=== PATIENT | male | born 1940 | race Caucasian/White ===

== ENCOUNTER 2017-08-03 12:01 | Inpatient (IN) ==
[2017-08-03] MEDS ORDERED: ALBUTEROL/IPRATROPIUM 3 ML NEB RESP TX PRN (12:32)
[2017-08-03] MEDS ORDERED: ALBUTEROL/IPRATROPIUM 3 ML NEB RESP TX SCH (15:00)
[2017-08-03] MEDS ORDERED: IPRATROPIUM 500 MCG/2.5 ML NEB RESP TX PRN (15:07)
[2017-08-03] MEDS ORDERED: AMINOPHYLLINE 250 MG in SODIUM CHLORIDE 0.9% 100 ML IV ONE (15:08)
[2017-08-03 15:18] LABS: Basophils % 0.2 % (0.0-0.8); Hematocrit 46.8 VOL% (42.0-52.0); Immature Granulocytes % 1.2 %; Immature Granulocytes Absolute 0.21 #; Lymphocytes # 0.8 10*3/uL (1.4-4.0); Lymphocytes % 4.7 % (21.2-54.2); Mean Corpuscular HGB Conc 34.2 GM/DL (32-36); Mean Corpuscular Hemoglobin 32 PG (27-34); Mean Corpuscular Volume 93.2 FL (87-102); Mean Platelet Volume 9.3 FL (9.6-12.0); Monocytes % 6.1 % (1.7-12.7); Neutrophils # 14.8 10*3/uL (1.4-7.4); Neutrophils % 87.8 % (38.7-73.9); Platelet Count 219 T/CUMM (130-400); Red Blood Count 5.02 MC/CUMM (3.8-5.5); Red Cell Distribution Width 13.2 % (9.3-17.3); White Blood Count 16.9 T/CUMM (4-12)
[2017-08-03 15:55] LABS: Albumin 3.1 G/DL (3.4-5.0); Bilirubin,Total 0.5 MG/DL (0.2-1.0); Calcium 8.4 MG/DL (8.5-10.1); Osmolality,Calculated 279.5 MOS/KG (273-304); Thyroid Stimulating Hormone 0.111 uIU/ml (0.358-3.74); Total Protein 6.7 G/DL (6.4-8.3)
[2017-08-03 16:06] LABS: Troponin I Only < 0.015 NG/ML (0.00-0.045)
[2017-08-03] MEDS: DEXTROSE 5% NACL 0.45% 1,000 ML IV SCH (16:09)
[2017-08-03] MEDS: MEROPENEM 1,000 MG in SODIUM CHLORIDE 0.9% 100 ML IV SCH ×2 (16:09→23:10)
[2017-08-03] MEDS: methylPREDNISolone SOD SUC 125 MG/2 ML VIAL IV SCH (16:09)
[2017-08-03 17:11] LABS: Lymphocytes 3 % (20-55); Segmented Neutrophils 95 % (50-85); Total Cells Counted 100
[2017-08-03 17:13] LABS: Platelet Estimate Normal; Polychromasia Few
[2017-08-03] MEDS ORDERED: METHOCARBAMOL 750 MG TABLET PO PRN (19:12)
[2017-08-03] MEDS ORDERED: traMADol 50 MG TABLET PO PRN (19:12)
[2017-08-03] MEDS: DORNASE ALFA 2.5 MG/2.5 ML VIAL RESP TX SCH (19:36)
[2017-08-03] MEDS: IPRATROPIUM 500 MCG/2.5 ML NEB RESP TX SCH (19:36)
[2017-08-03] MEDS: AMINOPHYLLINE 500 MG in SODIUM CHLORIDE 0.9% 480 ML IV SCH (21:33)
[2017-08-03] MEDS: CETIRIZINE 10 MG TABLET PO SCH (21:39)
[2017-08-04 00:10] LABS: Troponin I Only < 0.015 NG/ML (0.00-0.045)
[2017-08-04] MEDS: methylPREDNISolone SOD SUC 125 MG/2 ML VIAL IV SCH ×2 (03:56→15:35)
[2017-08-04 04:45] LABS: Apearance,Urine CLEAR (Clear); Bilirubin,Urine Negative (Negative); Blood, Urine Negative (Negative); Glucose,Urine (UA) >=500 mg/dL (Negative); Ketones,Urine Negative (Negative); Mucus,Urine Occasional /LPF (Occasional); Nitrite,Urine Negative (Negative); Protein,Urine Negative; RBC,Urine 1 /HPF (0-4); Squamous Epithelial Cell,Urine Occasional /HPF (0-10); Urine Color Straw (Yellow); Urine Specific Gravity 1.009 (1.001-1.035); Urine Urobilinogen < 2.0 EU/DL (0.2-1.0); WBC,Urine <1 /HPF (0-6)
[2017-08-04 06:36] LABS: Basophils % 0.3 % (0.0-0.8); Hematocrit 45.8 VOL% (42.0-52.0); Hemoglobin 15.4 GM/DL (14.0-18.0); Immature Granulocytes % 1.1 %; Immature Granulocytes Absolute 0.17 #; Lymphocytes # 0.8 10*3/uL (1.4-4.0); Mean Corpuscular HGB Conc 33.6 GM/DL (32-36); Mean Corpuscular Hemoglobin 31 PG (27-34); Mean Corpuscular Volume 93.3 FL (87-102); Mean Platelet Volume 9.4 FL (9.6-12.0); Monocytes # 0.9 10*3/uL (0.11-0.8); Monocytes % 5.9 % (1.7-12.7); Neutrophils # 13.3 10*3/uL (1.4-7.4); Neutrophils % 87.7 % (38.7-73.9); Platelet Count 223 T/CUMM (130-400); Red Blood Count 4.91 MC/CUMM (3.8-5.5); Red Cell Distribution Width 13.1 % (9.3-17.3); White Blood Count 15.1 T/CUMM (4-12)
[2017-08-04 07:04] LABS: Calcium 8.9 MG/DL (8.5-10.1); Osmolality,Calculated 274.8 MOS/KG (273-304); Potassium 3.8 MMOL/L (3.5-5.1)
[2017-08-04] MEDS: MEROPENEM 1,000 MG in SODIUM CHLORIDE 0.9% 100 ML IV SCH ×3 (07:30→22:56)
[2017-08-04] MEDS: IPRATROPIUM 500 MCG/2.5 ML NEB RESP TX SCH ×4 (07:42→19:33)
[2017-08-04] MEDS: DORNASE ALFA 2.5 MG/2.5 ML VIAL RESP TX SCH ×2 (07:47→19:33)
[2017-08-04] MEDS: DEXTROSE 5% NACL 0.45% 1,000 ML IV SCH (09:53)
[2017-08-04] MEDS: POTASSIUM CHLORIDE 20 MEQ TABLET PO SCH (09:55)
[2017-08-04] MEDS: MONTELUKAST 10 MG TABLET PO SCH (09:55)
[2017-08-04] MEDS: amLODIPine 10 MG TABLET PO SCH (09:55)
[2017-08-04] MEDS: CHLORTHALIDONE 25 MG TABLET PO SCH (15:35)
[2017-08-04] MEDS: AMINOPHYLLINE 500 MG in SODIUM CHLORIDE 0.9% 480 ML IV SCH (20:37)
[2017-08-04] MEDS: CETIRIZINE 10 MG TABLET PO SCH (20:38)
[2017-08-05] MEDS: DEXTROSE 5% NACL 0.45% 1,000 ML IV SCH ×4 (01:40→22:44)
[2017-08-05] MEDS: methylPREDNISolone SOD SUC 125 MG/2 ML VIAL IV SCH ×2 (03:19→15:43)
[2017-08-05] MEDS: MEROPENEM 1,000 MG in SODIUM CHLORIDE 0.9% 100 ML IV SCH ×3 (06:37→22:43)
[2017-08-05] MEDS: IPRATROPIUM 500 MCG/2.5 ML NEB RESP TX SCH ×4 (07:43→19:27)
[2017-08-05] MEDS: DORNASE ALFA 2.5 MG/2.5 ML VIAL RESP TX SCH ×2 (07:49→19:27)
[2017-08-05] MEDS: CHLORTHALIDONE 25 MG TABLET PO SCH (09:15)
[2017-08-05] MEDS: amLODIPine 10 MG TABLET PO SCH (09:15)
[2017-08-05] MEDS: MONTELUKAST 10 MG TABLET PO SCH (09:15)
[2017-08-05] MEDS: POTASSIUM CHLORIDE 20 MEQ TABLET PO SCH (09:15)
[2017-08-05] MEDS: AMINOPHYLLINE 500 MG in SODIUM CHLORIDE 0.9% 480 ML IV SCH ×3 (09:16→21:03)
[2017-08-05] MEDS: EPINEPHrine 1 MG/ML VIAL SUBCUT PRN (11:17)
[2017-08-05] MEDS: CETIRIZINE 10 MG TABLET PO SCH (21:14)
[2017-08-06] MEDS: methylPREDNISolone SOD SUC 125 MG/2 ML VIAL IV SCH ×2 (03:15→16:19)
[2017-08-06] MEDS: MEROPENEM 1,000 MG in SODIUM CHLORIDE 0.9% 100 ML IV SCH ×3 (06:31→22:56)
[2017-08-06] MEDS: amLODIPine 10 MG TABLET PO SCH (08:17)
[2017-08-06] MEDS: CHLORTHALIDONE 25 MG TABLET PO SCH (08:17)
[2017-08-06] MEDS: MONTELUKAST 10 MG TABLET PO SCH (08:17)
[2017-08-06] MEDS: POTASSIUM CHLORIDE 20 MEQ TABLET PO SCH (08:17)
[2017-08-06] MEDS: IPRATROPIUM 500 MCG/2.5 ML NEB RESP TX SCH ×4 (08:30→19:37)
[2017-08-06] MEDS: DORNASE ALFA 2.5 MG/2.5 ML VIAL RESP TX SCH ×2 (08:37→19:37)
[2017-08-06] MEDS: DEXTROSE 5% NACL 0.45% 1,000 ML IV SCH ×2 (11:03→20:05)
[2017-08-06] MEDS: CETIRIZINE 10 MG TABLET PO SCH (20:05)
[2017-08-06] MEDS: AMINOPHYLLINE 500 MG in SODIUM CHLORIDE 0.9% 480 ML IV SCH (20:08)
[2017-08-07] MEDS: DEXTROSE 5% NACL 0.45% 1,000 ML IV SCH ×2 (03:13→20:29)
[2017-08-07] MEDS: methylPREDNISolone SOD SUC 125 MG/2 ML VIAL IV SCH ×2 (03:13→15:37)
[2017-08-07] MEDS: MEROPENEM 1,000 MG in SODIUM CHLORIDE 0.9% 100 ML IV SCH ×3 (06:59→23:43)
[2017-08-07] MEDS: IPRATROPIUM 500 MCG/2.5 ML NEB RESP TX SCH ×4 (07:05→19:16)
[2017-08-07] MEDS: DORNASE ALFA 2.5 MG/2.5 ML VIAL RESP TX SCH ×2 (07:15→19:24)
[2017-08-07] MEDS: amLODIPine 10 MG TABLET PO SCH (09:38)
[2017-08-07] MEDS: POTASSIUM CHLORIDE 20 MEQ TABLET PO SCH (09:38)
[2017-08-07] MEDS: MONTELUKAST 10 MG TABLET PO SCH (09:38)
[2017-08-07] MEDS: CHLORTHALIDONE 25 MG TABLET PO SCH (09:38)
[2017-08-07] MEDS: FLUCONAZOLE INJ 200 MG in PREMIX 1 EACH IV SCH (11:46)
[2017-08-07] MEDS: EPINEPHrine 1 MG/ML VIAL SUBCUT PRN (15:46)
[2017-08-07] MEDS: CETIRIZINE 10 MG TABLET PO SCH (20:30)
[2017-08-07] MEDS: AMINOPHYLLINE 500 MG in SODIUM CHLORIDE 0.9% 480 ML IV SCH (20:30)
[2017-08-08] MEDS: methylPREDNISolone SOD SUC 125 MG/2 ML VIAL IV SCH ×2 (04:19→17:46)
[2017-08-08] MEDS: IPRATROPIUM 500 MCG/2.5 ML NEB RESP TX SCH ×4 (06:48→19:15)
[2017-08-08] MEDS: DORNASE ALFA 2.5 MG/2.5 ML VIAL RESP TX SCH ×2 (06:53→19:27)
[2017-08-08 07:56] LABS: Basophils % 0.2 % (0.0-0.8); Hematocrit 47.6 VOL% (42.0-52.0); Hemoglobin 16.8 GM/DL (14.0-18.0); Immature Granulocytes % 1.3 %; Immature Granulocytes Absolute 0.24 #; Lymphocytes # 0.4 10*3/uL (1.4-4.0); Lymphocytes % 2.3 % (21.2-54.2); Mean Corpuscular HGB Conc 35.3 GM/DL (32-36); Mean Corpuscular Hemoglobin 31 PG (27-34); Mean Corpuscular Volume 88.8 FL (87-102); Mean Platelet Volume 9.6 FL (9.6-12.0); Monocytes # 1.1 10*3/uL (0.11-0.8); Monocytes % 5.8 % (1.7-12.7); Neutrophils # 17.1 10*3/uL (1.4-7.4); Neutrophils % 90.4 % (38.7-73.9); Platelet Count 184 T/CUMM (130-400); Red Blood Count 5.36 MC/CUMM (3.8-5.5); Red Cell Distribution Width 12.6 % (9.3-17.3); White Blood Count 18.9 T/CUMM (4-12)
[2017-08-08] MEDS ORDERED: diphenhydrAMINE 50 MG/1 ML VIAL IM ONE (08:00)
[2017-08-08] MEDS: MEROPENEM 1,000 MG in SODIUM CHLORIDE 0.9% 100 ML IV SCH ×3 (08:00→23:18)
[2017-08-08] MEDS ORDERED: MEPERIDINE 50 MG/1 ML VIAL IV ONE (08:00)
[2017-08-08] MEDS ORDERED: BENZONATATE 100 MG CAPSULE PO ONE (08:00)
[2017-08-08 08:13] LABS: Hypochromasia 1+; Lymphocytes 1 % (20-55); Segmented Neutrophils 93 % (50-85); Total Cells Counted 100
[2017-08-08] MEDS ORDERED: LIDOCAINE 2% 20 ML VIAL RESP TX ONE (08:30)
[2017-08-08] MEDS ORDERED: LIDOCAINE 1% 20 ML VIAL MISC INJ ONE (08:30)
[2017-08-08] MEDS ORDERED: LIDOCAINE 2% VISCOUS 100 ML BOTTLE SWISH/SPIT ONE (08:30)
[2017-08-08 09:34] LABS: PT Patient Result 10.6 SECS; Partial Thromboplastin Time 25.4 SECS (0-40)
[2017-08-08] MEDS: FLUCONAZOLE INJ 200 MG in PREMIX 1 EACH IV SCH (10:50)
[2017-08-08] MEDS: CHLORTHALIDONE 25 MG TABLET PO SCH (13:39)
[2017-08-08] MEDS: POTASSIUM CHLORIDE 20 MEQ TABLET PO SCH (13:39)
[2017-08-08] MEDS: MONTELUKAST 10 MG TABLET PO SCH (13:39)
[2017-08-08] MEDS: amLODIPine 10 MG TABLET PO SCH (13:39)
[2017-08-08] MEDS: FLUCONAZOLE INJ 100 MG in PREMIX 1 EACH IV SCH (14:48)
[2017-08-08] MEDS: CIPROFLOXACIN INJ 400 MG in PREMIX 1 EACH IV SCH (14:58)
[2017-08-08] MEDS: DEXTROSE 5% NACL 0.45% 1,000 ML IV SCH (15:01)
[2017-08-08] MEDS: EPINEPHrine 1 MG/ML VIAL SUBCUT PRN (17:53)
[2017-08-08] MEDS: AMINOPHYLLINE 500 MG in SODIUM CHLORIDE 0.9% 480 ML IV SCH (20:43)
[2017-08-08] MEDS: CETIRIZINE 10 MG TABLET PO SCH (20:43)
[2017-08-09] MEDS: methylPREDNISolone SOD SUC 125 MG/2 ML VIAL IV SCH ×2 (03:24→15:37)
[2017-08-09] MEDS: CIPROFLOXACIN INJ 400 MG in PREMIX 1 EACH IV SCH ×2 (03:24→14:11)
[2017-08-09] MEDS: IPRATROPIUM 500 MCG/2.5 ML NEB RESP TX SCH ×4 (06:55→19:17)
[2017-08-09] MEDS: DORNASE ALFA 2.5 MG/2.5 ML VIAL RESP TX SCH ×2 (06:55→19:17)
[2017-08-09] MEDS: DEXTROSE 5% NACL 0.45% 1,000 ML IV SCH (08:04)
[2017-08-09] MEDS: MEROPENEM 1,000 MG in SODIUM CHLORIDE 0.9% 100 ML IV SCH ×2 (09:11→15:37)
[2017-08-09] MEDS: POTASSIUM CHLORIDE 20 MEQ TABLET PO SCH (09:12)
[2017-08-09] MEDS: MONTELUKAST 10 MG TABLET PO SCH (09:12)
[2017-08-09] MEDS: amLODIPine 10 MG TABLET PO SCH (09:12)
[2017-08-09] MEDS: CHLORTHALIDONE 25 MG TABLET PO SCH (09:12)
[2017-08-09] MEDS: THEOPHYLLINE ER (24 HR) 200 MG CAPSULE PO SCH ×2 (13:32→16:27)
[2017-08-09] MEDS: FLUCONAZOLE INJ 100 MG in PREMIX 1 EACH IV SCH (13:42)
[2017-08-09] MEDS: CETIRIZINE 10 MG TABLET PO SCH (20:42)
[2017-08-10] MEDS: MEROPENEM 1,000 MG in SODIUM CHLORIDE 0.9% 100 ML IV SCH ×4 (00:37→23:39)
[2017-08-10] MEDS: methylPREDNISolone SOD SUC 125 MG/2 ML VIAL IV SCH ×2 (03:25→17:21)
[2017-08-10] MEDS: CIPROFLOXACIN INJ 400 MG in PREMIX 1 EACH IV SCH ×2 (03:25→14:11)
[2017-08-10] MEDS: IPRATROPIUM 500 MCG/2.5 ML NEB RESP TX SCH ×4 (06:58→19:15)
[2017-08-10] MEDS: DORNASE ALFA 2.5 MG/2.5 ML VIAL RESP TX SCH ×2 (06:58→19:16)
[2017-08-10] MEDS: CHLORTHALIDONE 25 MG TABLET PO SCH (08:36)
[2017-08-10] MEDS: MONTELUKAST 10 MG TABLET PO SCH (08:37)
[2017-08-10] MEDS: THEOPHYLLINE ER (24 HR) 200 MG CAPSULE PO SCH ×2 (08:37→17:21)
[2017-08-10] MEDS: amLODIPine 10 MG TABLET PO SCH (08:37)
[2017-08-10] MEDS: POTASSIUM CHLORIDE 20 MEQ TABLET PO SCH (08:37)
[2017-08-10] MEDS ORDERED: CHLORTHALIDONE 25 MG TABLET PO SCH (11:00)
[2017-08-10] MEDS: FLUCONAZOLE INJ 100 MG in PREMIX 1 EACH IV SCH (12:51)
[2017-08-10] MEDS: CETIRIZINE 10 MG TABLET PO SCH (20:24)
[2017-08-11] MEDS: methylPREDNISolone SOD SUC 125 MG/2 ML VIAL IV SCH (02:49)
[2017-08-11] MEDS: CIPROFLOXACIN INJ 400 MG in PREMIX 1 EACH IV SCH (02:50)
[2017-08-11] MEDS: MEROPENEM 1,000 MG in SODIUM CHLORIDE 0.9% 100 ML IV SCH (06:43)
[2017-08-11] MEDS: IPRATROPIUM 500 MCG/2.5 ML NEB RESP TX SCH (07:05)
[2017-08-11] MEDS: DORNASE ALFA 2.5 MG/2.5 ML VIAL RESP TX SCH (07:10)
[2017-08-11 07:33] VITALS: BP 146/90
[2017-08-11] MEDS: MONTELUKAST 10 MG TABLET PO SCH (08:14)
[2017-08-11] MEDS: POTASSIUM CHLORIDE 20 MEQ TABLET PO SCH (08:14)
[2017-08-11] MEDS: THEOPHYLLINE ER (24 HR) 200 MG CAPSULE PO SCH (08:14)
[2017-08-11] MEDS ORDERED: METOPROLOL TARTRATE 25 MG TABLET PO SCH (10:30)
== END 2017-08-11 11:50 | disposition home or self-care (01) | DRG 190 ==
LOC: N.5E 13:40
PROVIDERS: ADMIT Internal Medicine Pulmonary Disease; ATTEND Internal Medicine Pulmonary Disease

== ENCOUNTER 2017-08-24 11:46 | Inpatient (IN) ==
[2017-08-24] MEDS ORDERED: ALBUTEROL/IPRATROPIUM 3 ML NEB RESP TX PRN (12:04)
[2017-08-24] MEDS ORDERED: ALBUTEROL/IPRATROPIUM 3 ML NEB RESP TX SCH (13:00)
[2017-08-24] MEDS: LEVOFLOXACIN INJ 500 MG in PREMIX 1 EACH IV SCH (13:10)
[2017-08-24 14:25] LABS: Basophils % 0.3 % (0.0-0.8); Eosinophils # 0.2 10*3/uL (0.0-0.87); Eosinophils % 2.3 % (0.00-10.9); Hematocrit 39.6 VOL% (42.0-52.0); Hemoglobin 13.2 GM/DL (14.0-18.0); Immature Granulocytes % 1.3 %; Lymphocytes # 1.2 10*3/uL (1.4-4.0); Lymphocytes % 15.1 % (21.2-54.2); Mean Corpuscular HGB Conc 33.3 GM/DL (32-36); Mean Corpuscular Hemoglobin 32 PG (27-34); Mean Corpuscular Volume 95.2 FL (87-102); Mean Platelet Volume 9.5 FL (9.6-12.0); Monocytes # 1.1 10*3/uL (0.11-0.8); Monocytes % 14.5 % (1.7-12.7); Neutrophils # 5.1 10*3/uL (1.4-7.4); Neutrophils % 66.5 % (38.7-73.9); Platelet Count 177 T/CUMM (130-400); Red Blood Count 4.16 MC/CUMM (3.8-5.5); Red Cell Distribution Width 13.5 % (9.3-17.3); White Blood Count 7.7 T/CUMM (4-12)
[2017-08-24 14:35] LABS: Apearance,Urine CLEAR (Clear); Bilirubin,Urine Negative (Negative); Blood, Urine Negative (Negative); Glucose,Urine (UA) Negative (Negative); Ketones,Urine Negative (Negative); Mucus,Urine Occasional /LPF (Occasional); Nitrite,Urine Negative (Negative); Protein,Urine Negative; RBC,Urine <1 /HPF (0-4); Urine Color Yellow (Yellow); Urine Specific Gravity 1.014 (1.001-1.035); WBC,Urine 1 /HPF (0-6)
[2017-08-24 14:38] LABS: Albumin 2.1 G/DL (3.4-5.0); Bilirubin,Total 0.5 MG/DL (0.2-1.0); Calcium 8.7 MG/DL (8.5-10.1); Osmolality,Calculated 271.8 MOS/KG (273-304); Thyroid Stimulating Hormone 0.571 uIU/ml (0.358-3.74); Total Protein 6.6 G/DL (6.4-8.3)
[2017-08-24] MEDS: ALBUTEROL/IPRATROPIUM 3 ML NEB RESP TX SCH ×3 (14:55→19:35)
[2017-08-24] MEDS: cefTAZidime 1,000 MG in SYRINGE 1 EACH IV SCH ×2 (15:44→20:58)
[2017-08-24] MEDS ORDERED: METHOCARBAMOL 750 MG TABLET PO PRN (17:53)
[2017-08-24] MEDS ORDERED: traMADol 50 MG TABLET PO PRN (17:53)
[2017-08-24] MEDS: methylPREDNISolone SOD SUC 40 MG/1 ML VIAL IV SCH (19:03)
[2017-08-24] MEDS: THEOPHYLLINE ER (24 HR) 200 MG CAPSULE PO SCH (19:03)
[2017-08-25] MEDS: methylPREDNISolone SOD SUC 40 MG/1 ML VIAL IV SCH ×2 (05:49→18:03)
[2017-08-25] MEDS: cefTAZidime 1,000 MG in SYRINGE 1 EACH IV SCH ×3 (05:50→21:18)
[2017-08-25] MEDS: ALBUTEROL/IPRATROPIUM 3 ML NEB RESP TX SCH ×5 (07:37→20:12)
[2017-08-25 07:43] LABS: Basophils % 0.2 % (0.0-0.8); Hemoglobin 13.8 GM/DL (14.0-18.0); Immature Granulocytes % 1.1 %; Immature Granulocytes Absolute 0.07 #; Lymphocytes # 0.6 10*3/uL (1.4-4.0); Lymphocytes % 9.8 % (21.2-54.2); Mean Corpuscular HGB Conc 34.5 GM/DL (32-36); Mean Corpuscular Hemoglobin 32 PG (27-34); Mean Corpuscular Volume 91.5 FL (87-102); Mean Platelet Volume 8.9 FL (9.6-12.0); Monocytes # 0.3 10*3/uL (0.11-0.8); Monocytes % 5.2 % (1.7-12.7); Neutrophils # 5.5 10*3/uL (1.4-7.4); Neutrophils % 83.7 % (38.7-73.9); Platelet Count 204 T/CUMM (130-400); Red Blood Count 4.37 MC/CUMM (3.8-5.5); Red Cell Distribution Width 13.2 % (9.3-17.3); White Blood Count 6.5 T/CUMM (4-12)
[2017-08-25 08:09] LABS: Potassium 4.2 MMOL/L (3.5-5.1)
[2017-08-25] MEDS: MONTELUKAST 10 MG TABLET PO SCH (08:28)
[2017-08-25] MEDS: POTASSIUM CHLORIDE 20 MEQ TABLET PO SCH (08:28)
[2017-08-25] MEDS: THEOPHYLLINE ER (24 HR) 200 MG CAPSULE PO SCH ×2 (08:28→18:03)
[2017-08-25] MEDS: CETIRIZINE 10 MG TABLET PO SCH (08:28)
[2017-08-25] MEDS: METOPROLOL TARTRATE 25 MG TABLET PO PRN ×2 (08:28→21:16)
[2017-08-25] MEDS ORDERED: ETHACRYNIC ACID 25 MG TABLET PO SCH ×2 (11:00→21:00)
[2017-08-25] MEDS: LEVOFLOXACIN INJ 500 MG in PREMIX 1 EACH IV SCH (14:09)
[2017-08-26] MEDS: methylPREDNISolone SOD SUC 40 MG/1 ML VIAL IV SCH ×2 (05:20→18:10)
[2017-08-26] MEDS: cefTAZidime 1,000 MG in SYRINGE 1 EACH IV SCH ×3 (05:20→20:17)
[2017-08-26 06:46] LABS: Basophils % 0.2 % (0.0-0.8); Hemoglobin 13.4 GM/DL (14.0-18.0); Immature Granulocytes % 0.5 %; Immature Granulocytes Absolute 0.05 #; Lymphocytes # 1.2 10*3/uL (1.4-4.0); Lymphocytes % 12.5 % (21.2-54.2); Mean Corpuscular HGB Conc 33.5 GM/DL (32-36); Mean Corpuscular Hemoglobin 31 PG (27-34); Mean Platelet Volume 9.4 FL (9.6-12.0); Monocytes # 0.7 10*3/uL (0.11-0.8); Monocytes % 7.4 % (1.7-12.7); Neutrophils # 7.6 10*3/uL (1.4-7.4); Neutrophils % 79.4 % (38.7-73.9); Platelet Count 250 T/CUMM (130-400); Red Cell Distribution Width 13.7 % (9.3-17.3); White Blood Count 9.6 T/CUMM (4-12)
[2017-08-26 07:17] LABS: Calcium 9.1 MG/DL (8.5-10.1); Osmolality,Calculated 277.5 MOS/KG (273-304); Potassium 3.9 MMOL/L (3.5-5.1)
[2017-08-26] MEDS: ALBUTEROL/IPRATROPIUM 3 ML NEB RESP TX SCH ×4 (07:45→19:20)
[2017-08-26] MEDS: CETIRIZINE 10 MG TABLET PO SCH (10:01)
[2017-08-26] MEDS: POTASSIUM CHLORIDE 20 MEQ TABLET PO SCH (10:01)
[2017-08-26] MEDS: MONTELUKAST 10 MG TABLET PO SCH (10:01)
[2017-08-26] MEDS: THEOPHYLLINE ER (24 HR) 200 MG CAPSULE PO SCH ×2 (10:01→17:54)
[2017-08-26] MEDS: LEVOFLOXACIN INJ 500 MG in PREMIX 1 EACH IV SCH (14:18)
[2017-08-27] MEDS: cefTAZidime 1,000 MG in SYRINGE 1 EACH IV SCH ×3 (05:43→21:04)
[2017-08-27] MEDS: methylPREDNISolone SOD SUC 40 MG/1 ML VIAL IV SCH ×2 (05:46→17:04)
[2017-08-27 06:42] LABS: Basophils % 0.1 % (0.0-0.8); Eosinophils # 0.1 10*3/uL (0.0-0.87); Eosinophils % 0.6 % (0.00-10.9); Hematocrit 38.9 VOL% (42.0-52.0); Hemoglobin 12.8 GM/DL (14.0-18.0); Immature Granulocytes % 0.9 %; Immature Granulocytes Absolute 0.07 #; Lymphocytes # 1.6 10*3/uL (1.4-4.0); Lymphocytes % 20.7 % (21.2-54.2); Mean Corpuscular HGB Conc 32.9 GM/DL (32-36); Mean Corpuscular Hemoglobin 31 PG (27-34); Mean Corpuscular Volume 95.6 FL (87-102); Mean Platelet Volume 8.8 FL (9.6-12.0); Monocytes # 0.9 10*3/uL (0.11-0.8); Monocytes % 11.6 % (1.7-12.7); Neutrophils # 5.2 10*3/uL (1.4-7.4); Neutrophils % 66.1 % (38.7-73.9); Platelet Count 228 T/CUMM (130-400); Red Blood Count 4.07 MC/CUMM (3.8-5.5); Red Cell Distribution Width 13.6 % (9.3-17.3); White Blood Count 7.8 T/CUMM (4-12)
[2017-08-27 07:07] LABS: Calcium 8.9 MG/DL (8.5-10.1); Osmolality,Calculated 282.1 MOS/KG (273-304)
[2017-08-27] MEDS: ALBUTEROL/IPRATROPIUM 3 ML NEB RESP TX SCH ×4 (07:49→20:41)
[2017-08-27] MEDS: CETIRIZINE 10 MG TABLET PO SCH (09:21)
[2017-08-27] MEDS: THEOPHYLLINE ER (24 HR) 200 MG CAPSULE PO SCH ×2 (09:21→17:04)
[2017-08-27] MEDS: METOPROLOL TARTRATE 25 MG TABLET PO PRN (09:21)
[2017-08-27] MEDS: MONTELUKAST 10 MG TABLET PO SCH (09:21)
[2017-08-27] MEDS: POTASSIUM CHLORIDE 20 MEQ TABLET PO SCH (09:21)
[2017-08-27] MEDS: LEVOFLOXACIN INJ 500 MG in PREMIX 1 EACH IV SCH (12:33)
[2017-08-28] MEDS: methylPREDNISolone SOD SUC 40 MG/1 ML VIAL IV SCH ×2 (05:17→18:38)
[2017-08-28] MEDS: cefTAZidime 1,000 MG in SYRINGE 1 EACH IV SCH ×3 (05:17→20:49)
[2017-08-28] MEDS: ALBUTEROL/IPRATROPIUM 3 ML NEB RESP TX SCH ×4 (07:10→19:15)
[2017-08-28] MEDS: CETIRIZINE 10 MG TABLET PO SCH (09:26)
[2017-08-28] MEDS: POTASSIUM CHLORIDE 20 MEQ TABLET PO SCH (09:26)
[2017-08-28] MEDS: MONTELUKAST 10 MG TABLET PO SCH (09:26)
[2017-08-28] MEDS: THEOPHYLLINE ER (24 HR) 200 MG CAPSULE PO SCH ×2 (09:26→18:38)
[2017-08-28] MEDS: LEVOFLOXACIN INJ 500 MG in PREMIX 1 EACH IV SCH (14:21)
[2017-08-28] MEDS: METOPROLOL TARTRATE 25 MG TABLET PO PRN (20:55)
[2017-08-29] MEDS ORDERED: NON-FORMULARY MEDICATION PO SCH (00:30)
[2017-08-29] MEDS: methylPREDNISolone SOD SUC 40 MG/1 ML VIAL IV SCH (05:20)
[2017-08-29] MEDS: cefTAZidime 1,000 MG in SYRINGE 1 EACH IV SCH (05:21)
[2017-08-29] MEDS: ALBUTEROL/IPRATROPIUM 3 ML NEB RESP TX SCH ×2 (07:12→11:21)
[2017-08-29 07:34] VITALS: BP 148/88
[2017-08-29] MEDS ORDERED: ETHACRYNIC ACID PO SCH (09:00)
[2017-08-29] MEDS: POTASSIUM CHLORIDE 20 MEQ TABLET PO SCH (09:05)
[2017-08-29] MEDS: MONTELUKAST 10 MG TABLET PO SCH (09:05)
[2017-08-29] MEDS: THEOPHYLLINE ER (24 HR) 200 MG CAPSULE PO SCH (09:05)
[2017-08-29] MEDS: CETIRIZINE 10 MG TABLET PO SCH (09:05)
== END 2017-08-29 14:00 | disposition home or self-care (01) | DRG 194 ==
LOC: N.2W 12:06 → N.5E 14:22
PROVIDERS: ADMIT Internal Medicine Pulmonary Disease; ATTEND Internal Medicine Pulmonary Disease

== ENCOUNTER 2018-01-15 11:22 | Inpatient (IN) ==
[2018-01-15] MEDS ORDERED: ALBUTEROL/IPRATROPIUM 3 ML NEB RESP TX PRN (12:29)
[2018-01-15] MEDS: ALBUTEROL/IPRATROPIUM 3 ML NEB RESP TX SCH ×2 (14:05→19:17)
[2018-01-15] MEDS ORDERED: traMADol 50 MG TABLET PO PRN (14:25)
[2018-01-15] MEDS ORDERED: METHOCARBAMOL 500 MG TABLET PO PRN (14:25)
[2018-01-15] MEDS: methylPREDNISolone SOD SUC 40 MG/1 ML VIAL IV SCH (14:53)
[2018-01-15] MEDS: cefTAZidime 1,000 MG in SYRINGE 1 EACH IV SCH ×2 (14:55→21:06)
[2018-01-15] MEDS: MEROPENEM 500 MG in SODIUM CHLORIDE 0.9% 100 ML IV SCH ×2 (14:57→21:07)
[2018-01-15] MEDS: POTASSIUM CHLORIDE 20 MEQ TABLET PO SCH (16:39)
[2018-01-15] MEDS: MONTELUKAST 10 MG TABLET PO SCH (16:39)
[2018-01-15] MEDS: ETHACRYNIC ACID 25 MG PO SCH (16:40)
[2018-01-15] MEDS: CETIRIZINE 10 MG TABLET PO SCH (16:40)
[2018-01-15] MEDS ORDERED: THEOPHYLLINE ER 200 MG TABLET PO SCH (17:00)
[2018-01-15] MEDS: THEOPHYLLINE ER (24 HR) 400 MG TABLET PO SCH (18:45)
[2018-01-15 23:53] LABS: Apearance,Urine CLEAR (Clear); Blood, Urine Negative (Negative); Glucose,Urine (UA) Negative (Negative); Hyaline Casts,Urine 1 /LPF (0-3); Ketones,Urine Negative (Negative); Mucus,Urine Occasional /LPF (Occasional); Nitrite,Urine Negative (Negative); Protein,Urine Negative; RBC,Urine 1 /HPF (0-4); Urine Color Yellow (Yellow); Urine Specific Gravity 1.028 (1.001-1.035); Urine Urobilinogen < 2.0 EU/DL (0.2-1.0); WBC,Urine 1 /HPF (0-6)
[2018-01-15 23:54] LABS: Bilirubin,Urine Moderate mg/dL (Negative)
[2018-01-16] MEDS: methylPREDNISolone SOD SUC 40 MG/1 ML VIAL IV SCH ×2 (01:03→15:25)
[2018-01-16] MEDS: cefTAZidime 1,000 MG in SYRINGE 1 EACH IV SCH ×3 (05:17→21:53)
[2018-01-16] MEDS: MEROPENEM 500 MG in SODIUM CHLORIDE 0.9% 100 ML IV SCH ×3 (05:19→20:42)
[2018-01-16 05:45] LABS: Basophils % 0.1 % (0.0-0.8); Hemoglobin 14.9 GM/DL (14.0-18.0); Immature Granulocytes % 0.3 %; Immature Granulocytes Absolute 0.02 #; Lymphocytes # 0.8 10*3/uL (1.4-4.0); Lymphocytes % 11.6 % (21.2-54.2); Mean Corpuscular Hemoglobin 28 PG (27-34); Mean Corpuscular Volume 89.7 FL (87-102); Mean Platelet Volume 10.6 FL (9.6-12.0); Monocytes # 0.2 10*3/uL (0.11-0.8); Monocytes % 2.6 % (1.7-12.7); Neutrophils # 5.9 10*3/uL (1.4-7.4); Neutrophils % 85.4 % (38.7-73.9); Platelet Count 253 T/CUMM (130-400); Red Blood Count 5.35 MC/CUMM (3.8-5.5)
[2018-01-16 06:15] LABS: Calcium 8.9 MG/DL (8.5-10.1); Osmolality,Calculated 274.8 MOS/KG (273-304); Potassium 4.1 MMOL/L (3.5-5.1)
[2018-01-16] MEDS: ALBUTEROL/IPRATROPIUM 3 ML NEB RESP TX SCH ×4 (07:22→19:39)
[2018-01-16] MEDS: ETHACRYNIC ACID 25 MG PO SCH ×2 (10:06→16:24)
[2018-01-16] MEDS: CETIRIZINE 10 MG TABLET PO SCH (10:07)
[2018-01-16] MEDS: POTASSIUM CHLORIDE 20 MEQ TABLET PO SCH (10:07)
[2018-01-16] MEDS: BENZONATATE 100 MG CAPSULE PO SCH ×3 (10:08→20:45)
[2018-01-16] MEDS: MONTELUKAST 10 MG TABLET PO SCH (10:09)
[2018-01-16] MEDS ORDERED: HYDROcodone/CHLORPHENIRAMINE ER 5 ML UDCUP PO PRN (10:39)
[2018-01-16 11:37] LABS: Alanine Aminotransferase 14 U/L (16-61); Albumin 3.1 G/DL (3.4-5.0); Alkaline Phosphatase 117 U/L (45-117); Amylase 47 U/L (25-115); Aspartate Amino Transferase 12 U/L (0-37); Bilirubin,Direct < 0.100 MG/DL (0.0-0.20); Bilirubin,Indirect 0.3 MG/DL (0.0-1.0); Total Protein 7.9 G/DL (6.4-8.3)
[2018-01-16] MEDS: THEOPHYLLINE ER (24 HR) 400 MG TABLET PO SCH (16:24)
[2018-01-16] MEDS: PANTOPRAZOLE 40 MG VIAL IV SCH (20:39)
[2018-01-17] MEDS: methylPREDNISolone SOD SUC 40 MG/1 ML VIAL IV SCH ×2 (01:05→12:30)
[2018-01-17] MEDS: MEROPENEM 500 MG in SODIUM CHLORIDE 0.9% 100 ML IV SCH ×3 (04:03→20:42)
[2018-01-17] MEDS: cefTAZidime 1,000 MG in SYRINGE 1 EACH IV SCH ×3 (05:19→21:10)
[2018-01-17 05:45] LABS: Basophils % 0.1 % (0.0-0.8); Hematocrit 43.8 VOL% (42.0-52.0); Hemoglobin 14.2 GM/DL (14.0-18.0); Immature Granulocytes % 0.5 %; Immature Granulocytes Absolute 0.06 #; Mean Corpuscular HGB Conc 32.4 GM/DL (32-36); Mean Corpuscular Hemoglobin 29 PG (27-34); Mean Platelet Volume 9.5 FL (9.6-12.0); Monocytes # 0.7 10*3/uL (0.11-0.8); Monocytes % 5.4 % (1.7-12.7); Neutrophils # 10.5 10*3/uL (1.4-7.4); Platelet Count 340 T/CUMM (130-400); Red Blood Count 4.98 MC/CUMM (3.8-5.5); Red Cell Distribution Width 12.9 % (9.3-17.3); White Blood Count 12.2 T/CUMM (4-12)
[2018-01-17 06:58] LABS: Calcium 8.9 MG/DL (8.5-10.1); Osmolality,Calculated 281.3 MOS/KG (273-304)
[2018-01-17] MEDS: ALBUTEROL/IPRATROPIUM 3 ML NEB RESP TX SCH ×4 (07:15→19:20)
[2018-01-17] MEDS ORDERED: PROPOFOL 200 MG/20 ML VIAL IV ONE (10:00)
[2018-01-17] MEDS ORDERED: LIDOCAINE 100 MG/5 ML SYRINGE ONE (10:00)
[2018-01-17] MEDS: MONTELUKAST 10 MG TABLET PO SCH (12:27)
[2018-01-17] MEDS: BENZONATATE 100 MG CAPSULE PO SCH ×3 (12:28→20:45)
[2018-01-17] MEDS: CETIRIZINE 10 MG TABLET PO SCH (12:28)
[2018-01-17] MEDS: ETHACRYNIC ACID 25 MG PO SCH ×2 (12:29→16:28)
[2018-01-17] MEDS: POTASSIUM CHLORIDE 20 MEQ TABLET PO SCH (12:30)
[2018-01-17] MEDS: PANTOPRAZOLE 40 MG VIAL IV SCH (15:10)
[2018-01-17] MEDS: THEOPHYLLINE ER (24 HR) 400 MG TABLET PO SCH (16:28)
[2018-01-17 17:41] LABS: Apearance,Urine CLEAR (Clear); Bilirubin,Urine Negative (Negative); Blood, Urine Negative (Negative); Glucose,Urine (UA) Negative (Negative); Ketones,Urine Negative (Negative); Nitrite,Urine Negative (Negative); Protein,Urine Negative; RBC,Urine <1 /HPF (0-4); Urine Color Straw (Yellow); Urine Specific Gravity 1.006 (1.001-1.035); Urine Urobilinogen < 2.0 EU/DL (0.2-1.0)
[2018-01-18] MEDS: methylPREDNISolone SOD SUC 40 MG/1 ML VIAL IV SCH ×2 (01:11→13:53)
[2018-01-18 05:10] LABS: Basophils % 0.2 % (0.0-0.8); Hematocrit 45.5 VOL% (42.0-52.0); Hemoglobin 14.2 GM/DL (14.0-18.0); Immature Granulocytes % 0.3 %; Immature Granulocytes Absolute 0.03 #; Lymphocytes # 0.9 10*3/uL (1.4-4.0); Lymphocytes % 9.8 % (21.2-54.2); Mean Corpuscular HGB Conc 31.2 GM/DL (32-36); Mean Corpuscular Hemoglobin 28 PG (27-34); Mean Corpuscular Volume 88.9 FL (87-102); Mean Platelet Volume 9.5 FL (9.6-12.0); Monocytes # 0.6 10*3/uL (0.11-0.8); Monocytes % 6.4 % (1.7-12.7); Neutrophils # 7.6 10*3/uL (1.4-7.4); Neutrophils % 83.3 % (38.7-73.9); Platelet Count 335 T/CUMM (130-400); Red Blood Count 5.12 MC/CUMM (3.8-5.5); White Blood Count 9.1 T/CUMM (4-12)
[2018-01-18 05:31] LABS: Calcium 8.7 MG/DL (8.5-10.1); Osmolality,Calculated 280.5 MOS/KG (273-304); Potassium 3.7 MMOL/L (3.5-5.1)
[2018-01-18] MEDS: MEROPENEM 500 MG in SODIUM CHLORIDE 0.9% 100 ML IV SCH ×3 (05:41→21:02)
[2018-01-18] MEDS: cefTAZidime 1,000 MG in SYRINGE 1 EACH IV SCH ×3 (05:42→21:02)
[2018-01-18] MEDS: ALBUTEROL/IPRATROPIUM 3 ML NEB RESP TX SCH ×4 (08:08→19:39)
[2018-01-18] MEDS: ETHACRYNIC ACID 25 MG PO SCH ×2 (09:25→15:52)
[2018-01-18] MEDS: MONTELUKAST 10 MG TABLET PO SCH (09:25)
[2018-01-18] MEDS: BENZONATATE 100 MG CAPSULE PO SCH ×3 (09:25→21:02)
[2018-01-18] MEDS: POTASSIUM CHLORIDE 20 MEQ TABLET PO SCH (09:25)
[2018-01-18] MEDS: PANTOPRAZOLE 40 MG TABLET PO SCH (09:25)
[2018-01-18] MEDS: CETIRIZINE 10 MG TABLET PO SCH (09:25)
[2018-01-18] MEDS: THEOPHYLLINE ER (24 HR) 400 MG TABLET PO SCH ×2 (15:51→16:47)
[2018-01-19] MEDS: methylPREDNISolone SOD SUC 40 MG/1 ML VIAL IV SCH ×2 (01:34→16:17)
[2018-01-19] MEDS: MEROPENEM 500 MG in SODIUM CHLORIDE 0.9% 100 ML IV SCH ×3 (05:37→21:09)
[2018-01-19] MEDS: cefTAZidime 1,000 MG in SYRINGE 1 EACH IV SCH ×3 (05:37→21:09)
[2018-01-19 05:53] LABS: Basophils % 0.2 % (0.0-0.8); Eosinophils % 0.1 % (0.00-10.9); Hematocrit 46.6 VOL% (42.0-52.0); Hemoglobin 14.7 GM/DL (14.0-18.0); Immature Granulocytes % 0.9 %; Immature Granulocytes Absolute 0.08 #; Lymphocytes # 1.1 10*3/uL (1.4-4.0); Lymphocytes % 12.2 % (21.2-54.2); Mean Corpuscular HGB Conc 31.5 GM/DL (32-36); Mean Corpuscular Hemoglobin 28 PG (27-34); Mean Corpuscular Volume 87.6 FL (87-102); Mean Platelet Volume 9.3 FL (9.6-12.0); Monocytes # 0.7 10*3/uL (0.11-0.8); Monocytes % 7.8 % (1.7-12.7); Neutrophils # 6.8 10*3/uL (1.4-7.4); Neutrophils % 78.8 % (38.7-73.9); Platelet Count 346 T/CUMM (130-400); Red Blood Count 5.32 MC/CUMM (3.8-5.5); Red Cell Distribution Width 13.1 % (9.3-17.3); White Blood Count 8.7 T/CUMM (4-12)
[2018-01-19 05:57] LABS: PT Patient Result 10.5 SECS; Partial Thromboplastin Time 29.9 SECS (0-40)
[2018-01-19] MEDS ORDERED: BENZONATATE 100 MG CAPSULE PO ONE (07:00)
[2018-01-19] MEDS ORDERED: diphenhydrAMINE CAP 50 MG CAPSULE PO ONE (07:00)
[2018-01-19] MEDS ORDERED: MEPERIDINE 50 MG/1 ML VIAL IM ONE (08:00)
[2018-01-19] MEDS: ALBUTEROL/IPRATROPIUM 3 ML NEB RESP TX SCH ×4 (08:11→19:43)
[2018-01-19] MEDS ORDERED: LIDOCAINE 2% 20 ML VIAL RESP TX ONE (08:30)
[2018-01-19] MEDS ORDERED: LIDOCAINE 2% VISCOUS 100 ML BOTTLE SWISH/SPIT ONE (08:30)
[2018-01-19] MEDS ORDERED: LIDOCAINE 1% 20 ML VIAL MISC INJ ONE (08:30)
[2018-01-19] MEDS: BENZONATATE 100 MG CAPSULE PO SCH ×3 (09:00→21:08)
[2018-01-19] MEDS: CETIRIZINE 10 MG TABLET PO SCH (09:00)
[2018-01-19] MEDS: ETHACRYNIC ACID 25 MG PO SCH ×2 (09:00→17:32)
[2018-01-19] MEDS ORDERED: MIDAZOLAM 2 MG/2 ML VIAL IV ONE (10:10)
[2018-01-19] MEDS ORDERED: MIDAZOLAM 2 MG/2 ML VIAL ONE (10:42)
[2018-01-19] MEDS: DORNASE ALFA 2.5 MG/2.5 ML VIAL RESP TX SCH ×2 (13:33→19:43)
[2018-01-19] MEDS: MONTELUKAST 10 MG TABLET PO SCH (16:16)
[2018-01-19] MEDS: POTASSIUM CHLORIDE 20 MEQ TABLET PO SCH (16:16)
[2018-01-19] MEDS: PANTOPRAZOLE 40 MG TABLET PO SCH (16:17)
[2018-01-19] MEDS: THEOPHYLLINE ER (24 HR) 400 MG TABLET PO SCH (18:18)
[2018-01-20] MEDS: methylPREDNISolone SOD SUC 40 MG/1 ML VIAL IV SCH ×2 (01:07→16:07)
[2018-01-20] MEDS: cefTAZidime 1,000 MG in SYRINGE 1 EACH IV SCH ×3 (05:14→22:15)
[2018-01-20] MEDS: MEROPENEM 500 MG in SODIUM CHLORIDE 0.9% 100 ML IV SCH ×3 (05:14→20:50)
[2018-01-20] MEDS: DORNASE ALFA 2.5 MG/2.5 ML VIAL RESP TX SCH ×2 (07:43→19:37)
[2018-01-20] MEDS: ALBUTEROL/IPRATROPIUM 3 ML NEB RESP TX SCH ×4 (07:43→19:37)
[2018-01-20] MEDS: ETHACRYNIC ACID 25 MG PO SCH ×2 (09:39→16:06)
[2018-01-20] MEDS: BENZONATATE 100 MG CAPSULE PO SCH ×3 (09:39→20:53)
[2018-01-20] MEDS: PANTOPRAZOLE 40 MG TABLET PO SCH (09:39)
[2018-01-20] MEDS: POTASSIUM CHLORIDE 20 MEQ TABLET PO SCH (09:40)
[2018-01-20] MEDS: CETIRIZINE 10 MG TABLET PO SCH (09:40)
[2018-01-20] MEDS: MONTELUKAST 10 MG TABLET PO SCH (09:41)
[2018-01-20] MEDS: THEOPHYLLINE ER (24 HR) 400 MG TABLET PO SCH (17:49)
[2018-01-21] MEDS: methylPREDNISolone SOD SUC 40 MG/1 ML VIAL IV SCH ×2 (01:55→13:32)
[2018-01-21] MEDS: MEROPENEM 500 MG in SODIUM CHLORIDE 0.9% 100 ML IV SCH ×3 (04:55→20:36)
[2018-01-21] MEDS: cefTAZidime 1,000 MG in SYRINGE 1 EACH IV SCH ×3 (05:00→22:00)
[2018-01-21] MEDS: BISACODYL 5 MG TABLET PO SCH ×5 (06:21→23:29)
[2018-01-21] MEDS: ALBUTEROL/IPRATROPIUM 3 ML NEB RESP TX SCH ×4 (07:30→19:09)
[2018-01-21] MEDS: DORNASE ALFA 2.5 MG/2.5 ML VIAL RESP TX SCH ×2 (07:30→19:17)
[2018-01-21] MEDS: POTASSIUM CHLORIDE 20 MEQ TABLET PO SCH (10:00)
[2018-01-21] MEDS: MONTELUKAST 10 MG TABLET PO SCH (10:00)
[2018-01-21] MEDS: BENZONATATE 100 MG CAPSULE PO SCH ×3 (10:01→20:36)
[2018-01-21] MEDS: CETIRIZINE 10 MG TABLET PO SCH (10:01)
[2018-01-21] MEDS: PANTOPRAZOLE 40 MG TABLET PO SCH (10:01)
[2018-01-21] MEDS: ETHACRYNIC ACID 25 MG PO SCH ×2 (10:04→15:20)
[2018-01-21] MEDS ORDERED: BISACODYL 5 MG TABLET PO SCH (10:30)
[2018-01-21] MEDS: THEOPHYLLINE ER (24 HR) 400 MG TABLET PO SCH (17:36)
[2018-01-21] MEDS ORDERED: POLYETHYLENE GLYCOL POWDER 255 GM BOTTLE PO ONE (18:00)
[2018-01-21] MEDS ORDERED: MAGNESIUM CITRATE 300 ML BOTTLE PO ONE (21:00)
[2018-01-22] MEDS: methylPREDNISolone SOD SUC 40 MG/1 ML VIAL IV SCH ×2 (03:48→17:04)
[2018-01-22] MEDS: MEROPENEM 500 MG in SODIUM CHLORIDE 0.9% 100 ML IV SCH ×3 (04:01→21:27)
[2018-01-22 05:41] LABS: Basophils % 0.2 % (0.0-0.8); Eosinophils # 0.2 10*3/uL (0.0-0.87); Eosinophils % 1.1 % (0.00-10.9); Hematocrit 49.4 VOL% (42.0-52.0); Hemoglobin 15.7 GM/DL (14.0-18.0); Immature Granulocytes % 0.5 %; Immature Granulocytes Absolute 0.06 #; Lymphocytes # 2.6 10*3/uL (1.4-4.0); Lymphocytes % 20.2 % (21.2-54.2); Mean Corpuscular HGB Conc 31.8 GM/DL (32-36); Mean Corpuscular Hemoglobin 28 PG (27-34); Mean Corpuscular Volume 87.9 FL (87-102); Monocytes # 1.9 10*3/uL (0.11-0.8); Monocytes % 14.7 % (1.7-12.7); Neutrophils # 8.3 10*3/uL (1.4-7.4); Neutrophils % 63.3 % (38.7-73.9); Platelet Count 385 T/CUMM (130-400); Red Blood Count 5.62 MC/CUMM (3.8-5.5); Red Cell Distribution Width 13.2 % (9.3-17.3); White Blood Count 13.1 T/CUMM (4-12)
[2018-01-22 05:48] LABS: Calcium 9.3 MG/DL (8.5-10.1); Osmolality,Calculated 273.7 MOS/KG (273-304); Potassium 3.9 MMOL/L (3.5-5.1)
[2018-01-22] MEDS: cefTAZidime 1,000 MG in SYRINGE 1 EACH IV SCH ×3 (05:52→22:39)
[2018-01-22] MEDS: ALBUTEROL/IPRATROPIUM 3 ML NEB RESP TX SCH ×4 (07:15→18:50)
[2018-01-22] MEDS: DORNASE ALFA 2.5 MG/2.5 ML VIAL RESP TX SCH ×2 (07:16→18:50)
[2018-01-22] MEDS: BENZONATATE 100 MG CAPSULE PO SCH ×3 (10:35→21:27)
[2018-01-22] MEDS: ETHACRYNIC ACID 25 MG PO SCH ×2 (10:36→17:03)
[2018-01-22] MEDS: POTASSIUM CHLORIDE 20 MEQ TABLET PO SCH (10:36)
[2018-01-22] MEDS: CETIRIZINE 10 MG TABLET PO SCH (10:36)
[2018-01-22] MEDS: PANTOPRAZOLE 40 MG TABLET PO SCH (10:36)
[2018-01-22] MEDS: MONTELUKAST 10 MG TABLET PO SCH (10:36)
[2018-01-22] MEDS: THEOPHYLLINE ER (24 HR) 400 MG TABLET PO SCH (17:05)
[2018-01-23] MEDS: methylPREDNISolone SOD SUC 40 MG/1 ML VIAL IV SCH ×2 (04:44→16:11)
[2018-01-23] MEDS: MEROPENEM 500 MG in SODIUM CHLORIDE 0.9% 100 ML IV SCH ×3 (04:46→20:42)
[2018-01-23] MEDS: cefTAZidime 1,000 MG in SYRINGE 1 EACH IV SCH ×3 (05:45→22:05)
[2018-01-23 06:07] LABS: Basophils % 0.2 % (0.0-0.8); Eosinophils % 0.1 % (0.00-10.9); Hematocrit 44.7 VOL% (42.0-52.0); Hemoglobin 14.2 GM/DL (14.0-18.0); Immature Granulocytes % 0.3 %; Immature Granulocytes Absolute 0.03 #; Lymphocytes # 1.6 10*3/uL (1.4-4.0); Lymphocytes % 14.8 % (21.2-54.2); Mean Corpuscular HGB Conc 31.8 GM/DL (32-36); Mean Corpuscular Hemoglobin 28 PG (27-34); Mean Corpuscular Volume 87.6 FL (87-102); Monocytes # 1.1 10*3/uL (0.11-0.8); Monocytes % 10.2 % (1.7-12.7); Neutrophils # 7.8 10*3/uL (1.4-7.4); Neutrophils % 74.4 % (38.7-73.9); Platelet Count 319 T/CUMM (130-400); Red Cell Distribution Width 13.2 % (9.3-17.3); White Blood Count 10.5 T/CUMM (4-12)
[2018-01-23 06:14] LABS: PT Patient Result 10.6 SECS; Partial Thromboplastin Time 30.1 SECS (0-40)
[2018-01-23] MEDS ORDERED: diphenhydrAMINE CAP 50 MG CAPSULE PO ONE (07:00)
[2018-01-23] MEDS ORDERED: BENZONATATE 100 MG CAPSULE PO ONE (07:00)
[2018-01-23] MEDS: ALBUTEROL/IPRATROPIUM 3 ML NEB RESP TX SCH ×4 (07:42→19:00)
[2018-01-23] MEDS: DORNASE ALFA 2.5 MG/2.5 ML VIAL RESP TX SCH ×2 (07:43→19:00)
[2018-01-23] MEDS ORDERED: MEPERIDINE 50 MG/1 ML VIAL IM ONE (08:00)
[2018-01-23] MEDS: ETHACRYNIC ACID 25 MG PO SCH ×2 (08:11→16:11)
[2018-01-23] MEDS ORDERED: MIDAZOLAM 2 MG/2 ML VIAL ONE (08:28)
[2018-01-23] MEDS ORDERED: LIDOCAINE 2% VISCOUS 100 ML BOTTLE SWISH/SPIT ONE (08:30)
[2018-01-23] MEDS ORDERED: LIDOCAINE 2% 20 ML VIAL RESP TX ONE (08:30)
[2018-01-23] MEDS ORDERED: LIDOCAINE 1% 20 ML VIAL MISC INJ ONE (08:30)
[2018-01-23] MEDS ORDERED: MIDAZOLAM 2 MG/2 ML VIAL IV ONE (08:57)
[2018-01-23] MEDS: BENZONATATE 100 MG CAPSULE PO SCH ×3 (09:34→20:42)
[2018-01-23] MEDS: MONTELUKAST 10 MG TABLET PO SCH (09:49)
[2018-01-23] MEDS: POTASSIUM CHLORIDE 20 MEQ TABLET PO SCH (09:49)
[2018-01-23] MEDS: PANTOPRAZOLE 40 MG TABLET PO SCH (09:49)
[2018-01-23] MEDS: CETIRIZINE 10 MG TABLET PO SCH (09:50)
[2018-01-23] MEDS: THEOPHYLLINE ER (24 HR) 400 MG TABLET PO SCH (16:11)
[2018-01-24 03:23] VITALS: BP 146/83
[2018-01-24] MEDS: methylPREDNISolone SOD SUC 40 MG/1 ML VIAL IV SCH (05:11)
[2018-01-24] MEDS: MEROPENEM 500 MG in SODIUM CHLORIDE 0.9% 100 ML IV SCH (05:15)
[2018-01-24] MEDS: cefTAZidime 1,000 MG in SYRINGE 1 EACH IV SCH (06:17)
[2018-01-24] MEDS: ALBUTEROL/IPRATROPIUM 3 ML NEB RESP TX SCH ×2 (07:01→11:52)
[2018-01-24] MEDS: DORNASE ALFA 2.5 MG/2.5 ML VIAL RESP TX SCH (07:01)
[2018-01-24] MEDS: PANTOPRAZOLE 40 MG TABLET PO SCH (09:21)
[2018-01-24] MEDS: MONTELUKAST 10 MG TABLET PO SCH (09:21)
[2018-01-24] MEDS: ETHACRYNIC ACID 25 MG PO SCH (09:21)
[2018-01-24] MEDS: POTASSIUM CHLORIDE 20 MEQ TABLET PO SCH (09:21)
[2018-01-24] MEDS: BENZONATATE 100 MG CAPSULE PO SCH (09:21)
[2018-01-24] MEDS: CETIRIZINE 10 MG TABLET PO SCH (09:22)
== END 2018-01-24 12:50 | disposition home or self-care (01) | DRG 178 ==
LOC: N.5E 11:57
PROVIDERS: ADMIT Internal Medicine Pulmonary Disease; ATTEND Internal Medicine Pulmonary Disease

== ENCOUNTER 2019-02-06 15:45 | Inpatient (IN) ==
[2019-02-06 16:52] LABS: Basophils % 0.1 % (0.0-0.8); Hematocrit 46.2 VOL% (42.0-52.0); Hemoglobin 15.1 GM/DL (14.0-18.0); Immature Granulocytes % 0.4 %; Immature Granulocytes Absolute 0.06 #; Lymphocytes # 0.7 10*3/uL (1.4-4.0); Mean Corpuscular HGB Conc 32.7 GM/DL (32-36); Mean Corpuscular Volume 95.3 FL (87-102); Mean Platelet Volume 9.7 FL (9.6-12.0); Monocytes % 10.1 % (1.7-12.7); Neutrophils % 84.4 % (38.7-73.9); Platelet Count 244 T/CUMM (130-400); Red Blood Count 4.85 MC/CUMM (3.8-5.5); Red Cell Distribution Width 12.1 % (9.3-17.3); White Blood Count 13.5 T/CUMM (4-12)
[2019-02-06 17:03] LABS: PT Patient Result 10.7 SECS (9.6-12.2); Partial Thromboplastin Time 33.2 SECS (20.8-36.0)
[2019-02-06 17:18] LABS: Albumin 3.4 G/DL (3.4-5.0); Bilirubin,Total 0.6 MG/DL (0.2-1.0); Osmolality,Calculated 279.4 MOS/KG (273-304); Total Protein 7.9 G/DL (6.4-8.3)
[2019-02-06] MEDS ORDERED: ALBUTEROL 2.5 MG/3 ML NEB RESP TX PRN (19:16)
[2019-02-06] MEDS ORDERED: ONDANSETRON 4 MG/2 ML VIAL IV PRN (19:16)
[2019-02-06] MEDS ORDERED: traMADol 50 MG TABLET PO PRN (19:30)
[2019-02-06] MEDS ORDERED: LEVOFLOXACIN INJ 750 MG in PREMIX 1 EACH IV SCH (21:00)
[2019-02-06] MEDS: ENOXAPARIN 40 MG/0.4 ML SYRINGE SUBCUT SCH ×2 (22:40→22:41)
[2019-02-06] MEDS: PANTOPRAZOLE 40 MG TABLET PO SCH (22:41)
[2019-02-06] MEDS: guaiFENesin/DM ER 600-30 MG TABLET PO SCH (22:41)
[2019-02-06] MEDS: Ethacrynic Acid [Edecrin] 50 MG PO SCH (22:41)
[2019-02-07] MEDS: ALBUTEROL/IPRATROPIUM 3 ML NEB RESP TX SCH ×4 (00:56→19:40)
[2019-02-07 07:18] LABS: Hematocrit 45.1 VOL% (42.0-52.0); Hemoglobin 14.9 GM/DL (14.0-18.0); Immature Granulocytes % 0.4 %; Immature Granulocytes Absolute 0.04 #; Lymphocytes # 0.9 10*3/uL (1.4-4.0); Lymphocytes % 9.6 % (21.2-54.2); Mean Platelet Volume 9.2 FL (9.6-12.0); Monocytes % 9.7 % (1.7-12.7); Neutrophils % 80.3 % (38.7-73.9); Platelet Count 260 T/CUMM (130-400); Red Cell Distribution Width 11.9 % (9.3-17.3); White Blood Count 9.6 T/CUMM (4-12)
[2019-02-07 07:36] LABS: Albumin 2.9 G/DL (3.4-5.0); Bilirubin,Total 1.7 MG/DL (0.2-1.0); Calcium 9.6 MG/DL (8.5-10.1); Osmolality,Calculated 267.2 MOS/KG (273-304); Total Protein 8.1 G/DL (6.4-8.3)
[2019-02-07] MEDS ORDERED: PANTOPRAZOLE 40 MG TABLET PO SCH (09:00)
[2019-02-07] MEDS: PANTOPRAZOLE 40 MG TABLET PO SCH ×2 (09:58→21:28)
[2019-02-07] MEDS: guaiFENesin/DM ER 600-30 MG TABLET PO SCH ×2 (09:58→21:28)
[2019-02-07] MEDS: CETIRIZINE 10 MG TABLET PO SCH (09:58)
[2019-02-07] MEDS: MONTELUKAST 10 MG TABLET PO SCH (09:58)
[2019-02-07] MEDS: POTASSIUM CHLORIDE 20 MEQ TABLET PO SCH (09:59)
[2019-02-07] MEDS: Ethacrynic Acid [Edecrin] 50 MG PO SCH ×2 (10:04→21:28)
[2019-02-07] MEDS ORDERED: BENZONATATE 100 MG CAPSULE PO PRN (11:00)
[2019-02-07] MEDS: KETOROLAC 15 MG/1 ML VIAL IV PRN ×2 (12:42→21:26)
[2019-02-07] MEDS: cefTAZidime 1,000 MG in SYRINGE 1 EACH IV SCH ×2 (14:51→23:35)
[2019-02-07] MEDS: ERTAPENEM 1,000 MG in SODIUM CHLORIDE 0.9% 100 ML IV SCH (17:00)
[2019-02-07] MEDS: METHOCARBAMOL 750 MG TABLET PO PRN (21:30)
[2019-02-07] MEDS: ENOXAPARIN 40 MG/0.4 ML SYRINGE SUBCUT SCH (21:31)
[2019-02-08] MEDS: ALBUTEROL/IPRATROPIUM 3 ML NEB RESP TX SCH ×4 (00:43→20:41)
[2019-02-08 05:00] LABS: Basophils % 0.1 % (0.0-0.8); Hematocrit 38.8 VOL% (42.0-52.0); Hemoglobin 12.9 GM/DL (14.0-18.0); Immature Granulocytes % 0.2 %; Immature Granulocytes Absolute 0.02 #; Lymphocytes # 1.1 10*3/uL (1.4-4.0); Lymphocytes % 13.1 % (21.2-54.2); Mean Corpuscular HGB Conc 33.2 GM/DL (32-36); Neutrophils % 72.6 % (38.7-73.9); Platelet Count 227 T/CUMM (130-400); Red Blood Count 4.17 MC/CUMM (3.8-5.5); Red Cell Distribution Width 11.9 % (9.3-17.3); White Blood Count 8.4 T/CUMM (4-12)
[2019-02-08 05:33] LABS: Calcium 8.8 MG/DL (8.5-10.1); Osmolality,Calculated 275.8 MOS/KG (273-304)
[2019-02-08] MEDS: cefTAZidime 1,000 MG in SYRINGE 1 EACH IV SCH ×3 (07:12→23:11)
[2019-02-08] MEDS ORDERED: oxyCODONE IR 5 MG TABLET PO PRN (09:13)
[2019-02-08] MEDS: Ethacrynic Acid [Edecrin] 50 MG PO SCH ×2 (09:18→21:01)
[2019-02-08] MEDS: CETIRIZINE 10 MG TABLET PO SCH (09:19)
[2019-02-08] MEDS: guaiFENesin/DM ER 600-30 MG TABLET PO SCH ×2 (09:19→21:01)
[2019-02-08] MEDS: PANTOPRAZOLE 40 MG TABLET PO SCH ×2 (09:20→21:01)
[2019-02-08] MEDS: AZITHROMYCIN 250 MG TABLET PO SCH (09:20)
[2019-02-08] MEDS: MONTELUKAST 10 MG TABLET PO SCH (09:20)
[2019-02-08] MEDS: POTASSIUM CHLORIDE 20 MEQ TABLET PO SCH (09:20)
[2019-02-08] MEDS: KETOROLAC 15 MG/1 ML VIAL IV PRN ×2 (12:19→21:00)
[2019-02-08] MEDS ORDERED: traMADol 50 MG TABLET PO SCH (15:00)
[2019-02-08] MEDS: traMADol 50 MG TABLET PO SCH ×2 (15:47→21:00)
[2019-02-08] MEDS: methylPREDNISolone SOD SUC 40 MG/1 ML VIAL IV SCH (17:54)
[2019-02-08] MEDS: ERTAPENEM 1,000 MG in SODIUM CHLORIDE 0.9% 100 ML IV SCH (17:56)
[2019-02-08] MEDS: ENOXAPARIN 40 MG/0.4 ML SYRINGE SUBCUT SCH (21:01)
[2019-02-09] MEDS: LEVALBUTEROL 1.25 MG/3 ML NEB RESP TX SCH ×4 (02:27→21:14)
[2019-02-09] MEDS: methylPREDNISolone SOD SUC 40 MG/1 ML VIAL IV SCH ×2 (05:42→17:20)
[2019-02-09] MEDS: cefTAZidime 1,000 MG in SYRINGE 1 EACH IV SCH ×3 (07:37→23:41)
[2019-02-09] MEDS: traMADol 50 MG TABLET PO SCH ×3 (09:03→21:32)
[2019-02-09] MEDS: Ethacrynic Acid [Edecrin] 50 MG PO SCH ×2 (09:03→21:30)
[2019-02-09] MEDS: PANTOPRAZOLE 40 MG TABLET PO SCH ×2 (09:04→21:32)
[2019-02-09] MEDS: guaiFENesin/DM ER 600-30 MG TABLET PO SCH ×2 (09:04→21:31)
[2019-02-09] MEDS: CETIRIZINE 10 MG TABLET PO SCH (09:04)
[2019-02-09] MEDS: POTASSIUM CHLORIDE 20 MEQ TABLET PO SCH (09:04)
[2019-02-09] MEDS: MONTELUKAST 10 MG TABLET PO SCH (09:04)
[2019-02-09] MEDS: KETOROLAC 15 MG/1 ML VIAL IV PRN ×2 (12:19→21:32)
[2019-02-09] MEDS: ERTAPENEM 1,000 MG in SODIUM CHLORIDE 0.9% 100 ML IV SCH (17:20)
[2019-02-09] MEDS: ENOXAPARIN 40 MG/0.4 ML SYRINGE SUBCUT SCH (21:39)
[2019-02-10] MEDS: LEVALBUTEROL 1.25 MG/3 ML NEB RESP TX SCH ×4 (00:30→20:24)
[2019-02-10] MEDS: methylPREDNISolone SOD SUC 40 MG/1 ML VIAL IV SCH ×2 (05:08→17:15)
[2019-02-10] MEDS: METHOCARBAMOL 750 MG TABLET PO PRN (05:10)
[2019-02-10] MEDS: KETOROLAC 15 MG/1 ML VIAL IV PRN ×3 (05:10→21:30)
[2019-02-10] MEDS: cefTAZidime 1,000 MG in SYRINGE 1 EACH IV SCH ×3 (07:35→23:25)
[2019-02-10] MEDS: MONTELUKAST 10 MG TABLET PO SCH (09:25)
[2019-02-10] MEDS: POTASSIUM CHLORIDE 20 MEQ TABLET PO SCH (09:25)
[2019-02-10] MEDS: guaiFENesin/DM ER 600-30 MG TABLET PO SCH ×2 (09:26→20:43)
[2019-02-10] MEDS: traMADol 50 MG TABLET PO SCH ×3 (09:26→20:43)
[2019-02-10] MEDS: CETIRIZINE 10 MG TABLET PO SCH (09:26)
[2019-02-10] MEDS: PANTOPRAZOLE 40 MG TABLET PO SCH ×2 (09:26→20:43)
[2019-02-10] MEDS: Ethacrynic Acid [Edecrin] 50 MG PO SCH ×2 (09:27→20:42)
[2019-02-10] MEDS: ERTAPENEM 1,000 MG in SODIUM CHLORIDE 0.9% 100 ML IV SCH (17:15)
[2019-02-10] MEDS: ENOXAPARIN 40 MG/0.4 ML SYRINGE SUBCUT SCH (20:43)
[2019-02-11] MEDS: LEVALBUTEROL 1.25 MG/3 ML NEB RESP TX SCH ×4 (00:54→19:40)
[2019-02-11] MEDS: methylPREDNISolone SOD SUC 40 MG/1 ML VIAL IV SCH ×2 (05:03→18:10)
[2019-02-11 06:13] LABS: Basophils % 0.1 % (0.0-0.8); Hematocrit 40.9 VOL% (42.0-52.0); Hemoglobin 13.4 GM/DL (14.0-18.0); Immature Granulocytes % 0.4 %; Immature Granulocytes Absolute 0.03 #; Lymphocytes # 1.6 10*3/uL (1.4-4.0); Lymphocytes % 19.5 % (21.2-54.2); Mean Corpuscular HGB Conc 32.8 GM/DL (32-36); Mean Platelet Volume 8.7 FL (9.6-12.0); Monocytes % 14.3 % (1.7-12.7); Neutrophils % 65.7 % (38.7-73.9); Platelet Count 280 T/CUMM (130-400); Red Blood Count 4.35 MC/CUMM (3.8-5.5); Red Cell Distribution Width 11.9 % (9.3-17.3)
[2019-02-11 06:16] LABS: PT Patient Result 10.7 SECS (9.6-12.2); Partial Thromboplastin Time 30.3 SECS (20.8-36.0)
[2019-02-11] MEDS: cefTAZidime 1,000 MG in SYRINGE 1 EACH IV SCH ×3 (06:17→23:29)
[2019-02-11 06:27] LABS: Albumin 2.6 G/DL (3.4-5.0); Bilirubin,Total 0.4 MG/DL (0.2-1.0); Calcium 8.6 MG/DL (8.5-10.1); Osmolality,Calculated 274.7 MOS/KG (273-304); Total Protein 6.6 G/DL (6.4-8.3)
[2019-02-11] MEDS ORDERED: BENZONATATE 100 MG CAPSULE PO ONE (08:00)
[2019-02-11] MEDS ORDERED: MEPERIDINE 50 MG/1 ML VIAL IM ONE (08:00)
[2019-02-11] MEDS ORDERED: diphenhydrAMINE 50 MG/1 ML VIAL IM ONE (08:00)
[2019-02-11] MEDS ORDERED: LIDOCAINE 2% 20 ML VIAL RESP TX ONE (08:30)
[2019-02-11] MEDS ORDERED: LIDOCAINE 2% VISCOUS 100 ML BOTTLE SWISH/SPIT ONE (08:30)
[2019-02-11] MEDS ORDERED: LIDOCAINE 1% 20 ML VIAL MISC INJ ONE (08:30)
[2019-02-11] MEDS: POTASSIUM CHLORIDE 20 MEQ TABLET PO SCH (09:35)
[2019-02-11] MEDS: MONTELUKAST 10 MG TABLET PO SCH (09:35)
[2019-02-11] MEDS: guaiFENesin/DM ER 600-30 MG TABLET PO SCH ×2 (09:36→20:47)
[2019-02-11] MEDS: PANTOPRAZOLE 40 MG TABLET PO SCH ×2 (09:36→20:47)
[2019-02-11] MEDS: traMADol 50 MG TABLET PO SCH ×3 (09:36→20:46)
[2019-02-11] MEDS: AZITHROMYCIN 250 MG TABLET PO SCH (09:36)
[2019-02-11] MEDS: CETIRIZINE 10 MG TABLET PO SCH (09:36)
[2019-02-11] MEDS: Ethacrynic Acid [Edecrin] 50 MG PO SCH ×2 (09:38→20:47)
[2019-02-11] MEDS: ERTAPENEM 1,000 MG in SODIUM CHLORIDE 0.9% 100 ML IV SCH (18:13)
[2019-02-11] MEDS: ENOXAPARIN 40 MG/0.4 ML SYRINGE SUBCUT SCH (20:47)
[2019-02-11] MEDS: KETOROLAC 15 MG/1 ML VIAL IV PRN (20:53)
[2019-02-12] MEDS: LEVALBUTEROL 1.25 MG/3 ML NEB RESP TX SCH ×4 (00:38→19:25)
[2019-02-12] MEDS: methylPREDNISolone SOD SUC 40 MG/1 ML VIAL IV SCH ×2 (04:31→17:28)
[2019-02-12 05:02] LABS: PT Patient Result 10.8 SECS (9.6-12.2); Partial Thromboplastin Time 29.7 SECS (20.8-36.0)
[2019-02-12 05:05] LABS: Basophils % 0.1 % (0.0-0.8); Hematocrit 40.1 VOL% (42.0-52.0); Hemoglobin 13.1 GM/DL (14.0-18.0); Immature Granulocytes % 0.3 %; Immature Granulocytes Absolute 0.02 #; Lymphocytes # 1.4 10*3/uL (1.4-4.0); Lymphocytes % 18.9 % (21.2-54.2); Mean Corpuscular HGB Conc 32.7 GM/DL (32-36); Mean Corpuscular Volume 93.9 FL (87-102); Mean Platelet Volume 8.8 FL (9.6-12.0); Monocytes % 12.8 % (1.7-12.7); Neutrophils % 67.9 % (38.7-73.9); Platelet Count 290 T/CUMM (130-400); Red Blood Count 4.27 MC/CUMM (3.8-5.5); Red Cell Distribution Width 11.9 % (9.3-17.3); White Blood Count 7.5 T/CUMM (4-12)
[2019-02-12 05:19] LABS: Calcium 8.7 MG/DL (8.5-10.1); Osmolality,Calculated 275.8 MOS/KG (273-304)
[2019-02-12] MEDS: cefTAZidime 1,000 MG in SYRINGE 1 EACH IV SCH ×3 (06:17→22:59)
[2019-02-12] MEDS ORDERED: MEPERIDINE 50 MG/1 ML VIAL IV ONE (08:00)
[2019-02-12] MEDS ORDERED: BENZONATATE 100 MG CAPSULE PO ONE (08:00)
[2019-02-12] MEDS ORDERED: diphenhydrAMINE 50 MG/1 ML VIAL IM ONE (08:00)
[2019-02-12] MEDS ORDERED: LIDOCAINE 1% 20 ML VIAL MISC INJ ONE (08:30)
[2019-02-12] MEDS ORDERED: LIDOCAINE 2% 20 ML VIAL RESP TX ONE (08:30)
[2019-02-12] MEDS ORDERED: LIDOCAINE 2% VISCOUS 100 ML BOTTLE SWISH/SPIT ONE (08:30)
[2019-02-12] MEDS ORDERED: MIDAZOLAM 2 MG/2 ML VIAL ONE (08:41)
[2019-02-12] MEDS: CETIRIZINE 10 MG TABLET PO SCH (12:20)
[2019-02-12] MEDS: Ethacrynic Acid [Edecrin] 50 MG PO SCH ×2 (12:20→20:26)
[2019-02-12] MEDS: PANTOPRAZOLE 40 MG TABLET PO SCH ×2 (12:20→20:25)
[2019-02-12] MEDS: POTASSIUM CHLORIDE 20 MEQ TABLET PO SCH (12:20)
[2019-02-12] MEDS: MONTELUKAST 10 MG TABLET PO SCH (12:20)
[2019-02-12] MEDS: guaiFENesin/DM ER 600-30 MG TABLET PO SCH ×2 (12:20→20:25)
[2019-02-12] MEDS: traMADol 50 MG TABLET PO SCH ×3 (12:30→20:25)
[2019-02-12] MEDS: ERTAPENEM 1,000 MG in SODIUM CHLORIDE 0.9% 100 ML IV SCH (17:31)
[2019-02-12] MEDS: ENOXAPARIN 40 MG/0.4 ML SYRINGE SUBCUT SCH (20:23)
[2019-02-13] MEDS: LEVALBUTEROL 1.25 MG/3 ML NEB RESP TX SCH ×2 (01:14→07:09)
[2019-02-13] MEDS: methylPREDNISolone SOD SUC 40 MG/1 ML VIAL IV SCH (04:47)
[2019-02-13] MEDS: cefTAZidime 1,000 MG in SYRINGE 1 EACH IV SCH (06:15)
[2019-02-13 07:37] VITALS: BP 156/68
[2019-02-13] MEDS: AZITHROMYCIN 250 MG TABLET PO SCH (09:01)
[2019-02-13] MEDS: POTASSIUM CHLORIDE 20 MEQ TABLET PO SCH (09:02)
[2019-02-13] MEDS: MONTELUKAST 10 MG TABLET PO SCH (09:02)
[2019-02-13] MEDS: guaiFENesin/DM ER 600-30 MG TABLET PO SCH (09:02)
[2019-02-13] MEDS: traMADol 50 MG TABLET PO SCH (09:02)
[2019-02-13] MEDS: PANTOPRAZOLE 40 MG TABLET PO SCH (09:02)
[2019-02-13] MEDS: Ethacrynic Acid [Edecrin] 50 MG PO SCH (09:02)
[2019-02-13] MEDS: CETIRIZINE 10 MG TABLET PO SCH (09:03)
== END 2019-02-13 11:25 | disposition home or self-care (01) | DRG 178 ==
LOC: N.ED 15:45 → N.EDINP 19:44 → SUATTDRO 19:44 → N.EDINP 20:32 → N.3E 20:34
PROVIDERS: ADMIT Internal Medicine; ATTEND Internal Medicine Geriatric Medicine